=== PATIENT | female | born 1955 | race American Indian/Alaskan Native ===

== ENCOUNTER 2019-02-26 10:05 | Outpatient (CLI) | payer MEDICARE ==
[2019-02-26 10:36] LABS: Blood Urea Nitrogen 23 mg/dL (7-17)
== END 2019-02-26 10:06 | disposition home or self-care (01) ==
LOC: CT 10:05
PROVIDERS: ATTEND Surgery Vascular Surgery
DX: T82.595A Other mechanical complication of umbrella device, initial encounter (principal); I87.2 Venous insufficiency (chronic) (peripheral); I87.393 Chronic venous hypertension (idiopathic) with other complications of bilateral lower extremity; Y83.8 Other surgical procedures as the cause of abnormal reaction of the patient, or of later complication, without mention of misadventure at the time of the procedure; Y92.89 Other specified places as the place of occurrence of the external cause
CPT/HCPCS: 36415; 82565; 84520

== ENCOUNTER 2019-03-10 09:51 | Outpatient (CLI) | payer MEDICARE ==
[2019-03-10 10:37] LABS: Blood Urea Nitrogen 27 mg/dL (7-17)
--- NOTE | 2019-03-10 13:51 | Cat Scan Report ---
CT angio abdomen pelvis INDICATION: Complications of cardiac and vascular prosthetic devices, implant. TECHNIQUE: Axial CT angiographic imaging was performed through the abdomen and pelvis after injection of 100 mL Omnipaque 350 contrast. 3 plane MIP reformats were produced. All CT scans at this location are perfor med using CT dose reduction for ALARA by means of automated exposure control. COMPARISON: No relevant prior imaging study available. FINDINGS: Vascular: Aorta: No significant abnormality. Celiac trunk: Patent with a high-grade stenosis at the origin and poststenotic dilatation of the vess el. No additional significant abnormality. SMA: No significant abnormality. THALIA: No significant abnormality. Renal arteries: Each kidney is supplied by a single patent artery that is normal in caliber. The left renal vein is preaortic. Iliac arteries: No significant abnormality. Femoral arteries: No significant abnormality. Additional vascular findings: An infrarenal IVC filter is noted with extension of arms/legs beyond th e IVC lumen along the left posterior margin of the IVC without penetration of adjacent structures. Nonvascular: Lower chest: Mild bibasilar atelectasis is noted. No additional significant abnormality. Liver: No significant abnormality. Biliary: No significant abnormality. Pancreas: No significant abnormality. Spleen: No significant abnormality. Adrenals: No significant abnormality. Kidneys: Wedge-shaped areas of hypoattenuation along the right kidney likely represent infarctions. N o additional significant abnormality. GI tract: There is a small hiatal hernia without associated inflammation. No additional significant n ormality of the stomach. No significant abnormality of the small bowel. Colonic diverticulosis is not ed without evidence of diverticulitis. The appendix is unremarkable. Peritoneum: No free air, free fluid or fluid collection. Lymph nodes: No lymphadenopathy. Bones: No acute abnormality. There are degenerative changes of the spine and SI joints. IMPRESSION: 1. 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 2. 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 3. 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 Signer Name: Mina Bush MD Signed: 03/10/2019 1:47 PM Workstation Name: [id number]
== END 2019-03-10 09:52 | disposition home or self-care (01) ==
LOC: CT 09:51
PROVIDERS: ATTEND Surgery Vascular Surgery
DX: I77.4 Celiac artery compression syndrome (principal); K44.9 Diaphragmatic hernia without obstruction or gangrene; J98.11 Atelectasis
CPT/HCPCS: 36415; 74174; 82565; 84520; Q9967